=== PATIENT | female | born 1965 | race Caucasian/White ===

== ENCOUNTER 2016-03-09 21:50 | Inpatient (IN) | payer MEDICARE, MEDICAID ==
[~2016-03-09] VITALS: Ht 149.9 cm; Wt 113.2 kg
[2016-03-09] MEDS ORDERED: ASPIRIN 81 MG CHEW TAB ONE (22:04)
[2016-03-10] VITALS (10 sets, daily range): BP systolic 95–142; RESP 18–20; TEMP 97.2–98; Ht 149.9 cm; Wt 113.2 kg
[2016-03-10] MEDS ORDERED: SALINE FLUSH 10 ML FLUSH PRN (00:45)
[2016-03-10] MEDS ORDERED: NITROGLYCERIN SL 0.4 MG TAB SL PRN (00:45)
[2016-03-10] MEDS ORDERED: MORPHINE 2 MG/ML SYR IV PRN (00:45)
[2016-03-10] MEDS ORDERED: SODIUM CHLORIDE 0.9% FLUSH BAG 500 ML IV PRN (00:45)
[2016-03-10] MEDS ORDERED: NITROGLYCERIN 50 MG/250 ML IV PRN (00:45)
[2016-03-10] MEDS ORDERED: ONDANSETRON 4 MG VIAL IV PRN (00:45)
[2016-03-10] MEDS ORDERED: LORAZEPAM 0.5 MG TAB PO PRN (00:45)
[2016-03-10] MEDS ORDERED: TEMAZEPAM 15 MG CAP PO PRN (00:45)
[2016-03-10] MEDS ORDERED: SODIUM CHLORIDE 0.9% 1,000 ML IV SCH (00:45)
[2016-03-10] MEDS: ASPIRIN EC 81 MG TAB PO SCH (09:06)
[2016-03-10] MEDS: SALINE FLUSH 10 ML FLUSH SCH ×2 (09:07→20:29)
[2016-03-10] MEDS ORDERED: MISSING DOSE XX ONE (09:10)
[2016-03-10] MEDS: DOCUSATE SOD 100 MG CAP PO PRN (10:42)
[2016-03-10] MEDS: KCL CR 10 MEQ TAB PO SCH ×2 (12:10→20:28)
[2016-03-10] MEDS: Furosemide 40 MG/4 ML VIAL IV SCH (12:11)
[2016-03-10] MEDS: METOPROLOL XL 25 MG TAB PO SCH (12:11)
[2016-03-10] MEDS: FLUOXETINE 20 MG CAP PO SCH (12:11)
[2016-03-10] MEDS: clonazePAM 0.5 MG TAB PO SCH (20:28)
[2016-03-10] MEDS: ARIPiprazole 10 MG TABLET PO SCH (20:28)
[2016-03-10] MEDS: TRAZODONE 50 MG TAB PO SCH (20:28)
[2016-03-10] MEDS: ALPRAZOLAM 0.25 MG TAB PO SCH (20:29)
[2016-03-11] VITALS (7 sets, daily range): BP systolic 103–117; RESP 18–24; TEMP 97.4–97.6
[2016-03-11] MEDS: PANTOPRAZOLE 40 MG TAB PO SCH (06:46)
[2016-03-11] MEDS: SALINE FLUSH 10 ML FLUSH SCH ×2 (08:35→20:33)
[2016-03-11] MEDS: FLUOXETINE 20 MG CAP PO SCH (08:36)
[2016-03-11] MEDS: ACETAMINOPHEN 325 MG TAB PO PRN ×2 (08:36→22:40)
[2016-03-11] MEDS: KCL CR 10 MEQ TAB PO SCH ×2 (08:37→20:34)
[2016-03-11] MEDS: METOPROLOL XL 25 MG TAB PO SCH (08:37)
[2016-03-11] MEDS: ASPIRIN EC 81 MG TAB PO SCH (08:37)
[2016-03-11] MEDS: Furosemide 40 MG/4 ML VIAL IV SCH ×3 (08:42→17:41)
[2016-03-11] MEDS ORDERED: MISSING DOSE XX ONE ×2 (08:50→10:40)
[2016-03-11] MEDS ORDERED: BISACODYL EC 5 MG TAB PO PRN (09:00)
[2016-03-11] MEDS: DOCUSATE SOD 100 MG CAP PO PRN (10:40)
[2016-03-11] MEDS: TRAMADOL 50 MG TAB PO PRN ×2 (10:41→20:35)
[2016-03-11] MEDS: ALPRAZOLAM 0.25 MG TAB PO SCH (20:29)
[2016-03-11] MEDS: TRAZODONE 50 MG TAB PO SCH (20:34)
[2016-03-11] MEDS: clonazePAM 0.5 MG TAB PO SCH (20:34)
[2016-03-11] MEDS: ARIPiprazole 10 MG TABLET PO SCH (20:34)
[2016-03-12 03:15] VITALS: BP_SYST 114; RESP 19; TEMP 97.2
[2016-03-12 07:27] VITALS: BP_SYST 93; BP_SYST 98; RESP 20; TEMP 97.6
[2016-03-12] MEDS: METOPROLOL XL 25 MG TAB PO SCH (08:32)
[2016-03-12] MEDS: Furosemide 40 MG/4 ML VIAL IV SCH (08:32)
[2016-03-12] MEDS: PANTOPRAZOLE 40 MG TAB PO SCH (08:33)
[2016-03-12] MEDS: FLUOXETINE 20 MG CAP PO SCH (08:33)
[2016-03-12] MEDS: KCL CR 10 MEQ TAB PO SCH (08:34)
[2016-03-12] MEDS: ASPIRIN EC 81 MG TAB PO SCH (08:34)
[2016-03-12] MEDS: SALINE FLUSH 10 ML FLUSH SCH (08:34)
[2016-03-12 09:48] VITALS: BP_SYST 98; RESP 20; TEMP 97.6
== END 2016-03-12 10:50 | disposition home or self-care (01) | DRG 292 ==
LOC: ENRESERVTM → ENRESERVDT → ER 21:50 → EMR 21:51 → PCU 03-10 02:03 → OBSVTOIN 03-10 11:03 → ENPENDDIS 03-10 11:03
PROVIDERS: ADMIT Internal Medicine Cardiovascular Disease; ATTEND Internal Medicine Cardiovascular Disease
DX: I11.0 Hypertensive heart disease with heart failure (principal); Z68.43 Body mass index [BMI] 50.0-59.9, adult; Z79.01 Long term (current) use of anticoagulants; I50.33 Acute on chronic diastolic (congestive) heart failure; E66.01 Morbid (severe) obesity due to excess calories; Z71.3 Dietary counseling and surveillance; G47.33 Obstructive sleep apnea (adult) (pediatric); J44.9 Chronic obstructive pulmonary disease, unspecified; K21.9 Gastro-esophageal reflux disease without esophagitis; F32.9 Major depressive disorder, single episode, unspecified; F41.9 Anxiety disorder, unspecified; F42.9 Obsessive-compulsive disorder, unspecified; Z87.891 Personal history of nicotine dependence; I48.0 Paroxysmal atrial fibrillation; K59.00 Constipation, unspecified
CPT/HCPCS: 36415; 71010; 80048; 80053; 80061; 82550; 82553; 83735; 83880; 84439; 84443; 84484; 85025; 85610; 85730; 93005; 93306; 94799